=== PATIENT | female | born 1990 ===

== ENCOUNTER 2017-03-30 00:14 | Emergency (ER) | payer SELFPAY ==
[2017-03-30 00:55] VITALS: BMI 27.6
[2017-03-30 00:57] VITALS: BP 106/64; PULSE 83; RESP 16; TEMP 97.9; O2SAT 96
--- NOTE | 2017-03-30 03:10 | ED PDOC ---
HPI: CCC, URI, Sore Throat Time Seen by Provider: 03/30/17 02:16 Chief Complaint (Nursing): Cough, Cold, Congestion Chief Complaint (Provider): cough, congestion History Per: Patient History/Exam Limitations: no limitations Onset/Duration Of Symptoms: Days (4) Current Symptoms Are (Timing): Still Present Associated Symptoms: Cough, Sputum, Nasal Congestion Additional History Per: Patient Additional Complaint(s): 26 y/o female presents with productive cough, congestion x 4 days. Patient notes blood-tingued sputum tonight, which prompted ED visit. Denies fever, headache, dizziness, chest pain, shortness of breath, palpitations, abdominal pain, recent travel, sick contacts. Past Medical History Reviewed: Historical Data, Nursing Documentation, Vital Signs Vital Signs: Last Vital Signs Temp 97.9 F 03/30/17 00:55 Pulse 83 03/30/17 00:55 Resp 16 03/30/17 00:55 BP 106/64 03/30/17 00:55 Pulse Ox 96 03/30/17 03:10 - Medical History PMH: No Chronic Diseases - Surgical History Surgical History: No Surg Hx - Family History Family History: States: No Known Family Hx - Home Medications Home Medications: Ambulatory Orders Medication Instructions Recorded Albuterol HFA [Ventolin HFA 90 1 - 2 puff IH Q4 PRN #1 inh 03/30/17 mcg/actuation (8 g)] Azithromycin [Zithromax] 250 mg PO DAILY #1 packet 03/30/17 Fluticasone Nasal [Flonase] 1 actuation NS BID #1 bottle 03/30/17 Promethazine HCl/Codeine 5 ml PO Q8 PRN #75 ml 03/30/17 [Prometh-Codein 6.25-10 mg/5 ml] - Allergies Allergies/Adverse Reactions: Allergies Allergy/AdvReac Type Severity Reaction Status Date / Time No Known Allergies Allergy Verified 03/30/17 00:55 Review of Systems ROS Statement: Except As Marked, All Systems Reviewed And Found Negative ENT: Positive for: Nose Congestion Respiratory: Positive for: Cough, Sputum Physical Exam - Reviewed Nursing Documentation Reviewed: Yes Vital Signs Reviewed: Yes - Physical Exam Appears: Positive for: Well, Non-toxic, No Acute Distress Head Exam: Positive for: ATRAUMATIC, NORMAL INSPECTION Skin: Positive for: Normal Color Eye Exam: Positive for: Normal appearance ENT: Positive for: Nasal Congestion, Pharyngeal Erythema Cardiovascular/Chest: Positive for: Regular Rate, Rhythm Respiratory: Positive for: Normal Breath Sounds Gastrointestinal/Abdominal: Positive for: Normal Exam Back: Positive for: Normal Inspection Extremity: Positive for: Normal ROM Neurologic/Psych: Positive for: Alert, Oriented - ECG O2 Sat by Pulse Oximetry: 96 Pulse Ox Interpretation: Normal - Radiology X-Ray: Viewed By Ms X-Ray Interpretation: Infiltrates (possible developing RLL infiltrate ) - Progress ED Course And Treament: chest xray, flu, strep, duoneb, ibuprofen Patient educated on findings, discharged with rx Zpak, albuterol HFA, Promethazine with codeine, Flonase Advised follow up PMD 2-3 days. Return precautions given. Disposition - Clinical Impression Clinical Impression: Pneumonia - Patient ED Disposition Is Patient to be Admitted: No Counseled Patient/Family Regarding: Studies Performed, Diagnosis, Need For Followup, Rx Given - Disposition Referrals: [facility] [Outside] Disposition: Routine/Home Disposition Time: 05:01 Condition: IMPROVED Prescriptions: Albuterol HFA [Ventolin HFA 90 mcg/actuation (8 g)] 1 - 2 puff IH Q4 PRN #1 inh PRN Reason: Wheezing Azithromycin [Zithromax] 250 mg PO DAILY #1 packet Fluticasone Nasal [Flonase] 1 actuation NS BID #1 bottle Promethazine HCl/Codeine [Prometh-Codein 6.25-10 mg/5 ml] 5 ml PO Q8 PRN #75 ml PRN Reason: Cough Instructions: Community Acquired Pneumonia (ED) Forms: [employer] (Greenlandic) Print Language: OCCITAN
[2017-03-30] MEDS ORDERED: Albuterol-Ipratrop 3 mg / 0.5 (3 ml) UD ONE (03:28)
[2017-03-30] MEDS: Albuterol-Ipratrop 3 mg / 0.5 (3 ml) UD IH STA (03:45)
--- NOTE | 2017-03-30 11:02 | RAD ---
HISTORY: cough, congestion COMPARISON: No prior. TECHNIQUE: Chest PA and lateral FINDINGS: LUNGS: No active pulmonary disease. PLEURA: No significant pleural effusion identified. No pneumothorax apparent. CARDIOVASCULAR: Normal. OSSEOUS STRUCTURES: No significant abnormalities. VISUALIZED UPPER ABDOMEN: Normal. OTHER FINDINGS: None. IMPRESSION: No active disease.
== END 2017-03-30 05:35 | disposition home or self-care (01) ==
LOC: H.ER 00:14
DX: J18.9 Pneumonia, unspecified organism (principal)

== ENCOUNTER 2017-06-28 19:01 | Emergency (ER) | payer OTHER ==
[2017-06-28 19:01] VITALS: BMI 27.6
[2017-06-28 19:15] VITALS: TEMP 98
[2017-06-28] MEDS: Sodium Chloride 0.9% 1,000 ML IV SCH (19:44)
[2017-06-28 20:20] LABS: ALB/GLOB RATIO 1.4 (1.0-2.1); ALBUMIN 4.2 g/dL (3.5-5.0); ALT/SGPT 39 U/L (9-52); AST/SGOT 24 U/L (14-36); BLOOD UREA NITROGEN 9 mg/dl (7-17); CALCIUM 9.1 mg/dL (8.4-10.2); GFR AFRICAN-AMERICAN > 60; GFR NON-AFRICAN AMERICAN > 60; HDL CHOLESTEROL 38 MG/DL (30-70)
[2017-06-28 20:30] LABS: BASO # 0.1 K/uL (0.0-0.2); BASO % 0.6 % (0.0-2.0); EOS # 0.2 K/uL (0.0-0.7); EOS % 2.9 % (0.0-4.0); HEMOGLOBIN 14.2 g/dL (12.0-16.0); LYMPH # 2.7 K/uL (1.0-4.3); LYMPH % 33.1 % (20.0-40.0); MEAN CELL VOLUME 88.2 fl (81.0-99.0); MEAN CORPUSCULAR HEMOGLOBIN 29.7 pg (27.0-31.0); MEAN CORPUSCULAR HGB CONC 33.7 g/dL (33.0-37.0); MEAN PLATELET VOLUME 9.9 fl (7.2-11.7); MONO # 0.6 K/uL (0.0-0.8); MONO % 7.7 % (0.0-10.0); NEUT # 4.5 K/uL (1.8-7.0); NEUT % 55.7 % (50.0-75.0); NRBC % 0.2 % (0.0-0.0); RBC 4.78 Mil/uL (3.80-5.20); RED CELL DISTRIBUTION WIDTH 13.2 % (11.5-14.5); WHITE BLOOD COUNT 8.1 K/uL (4.8-10.8)
[2017-06-28 20:31] LABS: PARTIAL THROMBOPLASTIN TIME 29.7 Seconds (25.6-37.1); PROTHROMBIN TIME 11.5 Seconds (9.8-13.1)
[2017-06-28 20:32] LABS: LDL CHOLESTEROL 96 mg/dL (0-129)
--- NOTE | 2017-06-28 20:38 | ED PDOC ---
HPI:STROKE - Time Time: 19:10 - Historian Historian: Patient - Chief Complaint Chief Complaint: other (headache bilateral weakness) - Onset Date: 06/28/17 Time: 18:00 - Location Location: Difficult to localize Locate right:: Upper extremity, Lower extremity Locate left: Lower extremity - Severity of pain Maximum severity:: Severe Severity Current: Severe - Quality of Pain Quality of Pain:: Pressure - Exacerbated by Exacerbated by:: Other (bright lights) - Relieved by Relieved by:: Nothing - TPA Positive for Contraindication: Yes Reason tPA is not being Administered: NIHSS <4 - Notes: Notes:: 26yo female hx prior headaches last about one year ago presents c/o severe headache associated with light sensitivity and bilateral tingling to hands and legs. Denies weakness, fever, neck pain, change in speech, seizure activity or trauma. NIHSS Stroke Scale - Date/Time Evaluation Performed Date Performed: 06/28/17 Time Performed: 18:30 When Was NIHSS Performed: Baseline - How Severe is the Stroke Level of Consciousness: 0=Alert LOC to Questions: 0=Both comments correct LOC to commands: 0=Obeys both correctly Best Gaze: 0=Normal Visual: 0=No visual loss Facial: 0=Normal Motor Arm - Left: 0=No drift Motor Arm - Right: 0=No drift Motor Leg - Left: 0=No drift Motor Leg - Right: 0=No drift Limb Ataxia: 0=Absent Sensory: 0=Normal Best Language: 0=No aphasia Dysarthia: 0=Normal articulation Extinction & Inattention (Neglect): 0=Normal, no object Score: 0 rTPA Inclusion/Exclusion - Refusal of Treatment Patient Refused Treatment: No - Inclusion Criteria for Altepase Patient is 18 years or Older: Yes The Clinical Diagnosis of Ischemic Stroke That is Causing a Potentially Disabling Neurological Deficit: No Time of Onset is Well Established to be Less Than 270 Minute Before Treatment Would Begin: No Risk/Benefit Discussed With Patient/Family Member Present: No - Exclusion Criteria for Altepase Uncontrolled Hypertension at Time of Treatment (Systolic BP above 185 or Diastolic BP above 110 mmHg): No - Warning to TPA With Conditions Condition: Stroke Serevity Too Mild Past Medical History Reviewed: Historical Data, Nursing Documentation, Vital Signs Vital Signs: Last Vital Signs Temp 98.0 F 06/28/17 19:08 Pulse 79 06/28/17 19:08 Resp 16 06/28/17 19:08 BP 129/69 06/28/17 19:08 Pulse Ox 100 06/28/17 19:08 - Medical History PMH: Migraine - Surgical History Surgical History: No Surg Hx - Family History Family History: States: Unknown Family Hx - Living Arrangements Living Arrangements: With Family - Social History Current smoker - smoking cessation education provided: No - Home Medications Home Medications: Ambulatory Orders Medication Instructions Recorded Albuterol HFA [Ventolin HFA 90 1 - 2 puff IH Q4 PRN #1 inh 03/30/17 mcg/actuation (8 g)] Azithromycin [Zithromax] 250 mg PO DAILY #1 packet 03/30/17 Fluticasone Nasal [Flonase] 1 actuation NS BID #1 bottle 03/30/17 Promethazine HCl/Codeine 5 ml PO Q8 PRN #75 ml 03/30/17 [Prometh-Codein 6.25-10 mg/5 ml] Naproxen [Naprosyn] 500 mg PO BID PRN #14 tablet 06/28/17 - Allergies Allergies/Adverse Reactions: Allergies Allergy/AdvReac Type Severity Reaction Status Date / Time No Known Allergies Allergy Verified 03/30/17 00:55 Review of Systems Constitutional: Negative for: Fever, Chills Cardiovascular: Negative for: Chest Pain, Palpitations Respiratory: Negative for: Cough, Hemoptysis Gastrointestinal: Positive for: Nausea. Negative for: Vomiting, Abdominal Pain Genitourinary Female: Negative for: Dysuria Musculoskeletal: Negative for: Neck Pain, Back Pain Skin: Negative for: Rash, Lesions Neurological: Positive for: Weakness (bilateral), Numbness (bilateral hands), Headache. Negative for: Incoordination, Change in Speech, Confusion, Seizures, Altered Mental Status Psych: Positive for: Anxiety. Negative for: Depression Physical Exam - Reviewed Nursing Documentation Reviewed: Yes Vital Signs Reviewed: Yes - Physical Exam Appears: Positive for: Non-toxic (uncomfortable w clear speech in [place] no dysarthria) Head Exam: Positive for: ATRAUMATIC, NORMAL INSPECTION, NORMOCEPHALIC Skin: Positive for: Normal Color, Warm, DRY Eye Exam: Positive for: EOMI, PERRL, Other (photophobic) ENT: Positive for: Normal ENT Inspection Neck: Positive for: Normal, Painless ROM. Negative for: Pain On Movement Of Neck Cardiovascular/Chest: Positive for: Regular Rate, Rhythm Respiratory: Positive for: CNT, Normal Breath Sounds Pulses-Radial (L): 2+ Pulses-Radial (R): 2+ Gastrointestinal/Abdominal: Positive for: Bowel Sounds, Soft. Negative for: Tenderness, Guarding Back: Positive for: Normal Inspection Extremity: Positive for: Normal ROM Neurologic/Psych: Positive for: Alert, traffic administrator II-XII, Oriented. Negative for: Motor/Sensory Deficits - Laboratory Results Result Diagrams: 06/28/17 20:06 06/28/17 20:06 - ECG O2 Sat by Pulse Oximetry: 100 Pulse Ox Interpretation: Normal Medical Decision Making Medical Decision Mak[place] female w likely complex migraine D/w Dr Alvares neurology recommends trial imitrex and IV cocktail for headache labs and ct imaging report reviewed- no concerning abnormalities patient was re-evaluated frequently and showed gradual improvement in headache. remained without acute objective neurologic symptoms On final re-evaluation she stated headache was resolved. Some mild light sensitivity remained but denied neck pain, nausea, chills or weakness/numbness. 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 Questions answered and indications for return discussed. Rx naprosyn, referral to clinic/ neurology made given recurrent migranes. Disposition - Clinical Impression Clinical Impression: Acute headache - Patient ED Disposition Is Patient to be Admitted: No - Disposition Referrals: [facility] [Outside] Disposition Time: 23:45 Condition: STABLE Additional Instructions: See neurologist for further testing. Take medications as directed. Return to ER for any new or worsening symptoms. Prescriptions: Naproxen [Naprosyn] 500 mg PO BID PRN #14 tablet PRN Reason: Pain, Moderate (4-7) Instructions: Acute Headache (ED) Forms: [employer] (Persian), [facility] ED School/Work Excuse Print Language: FRISIAN
[2017-06-28] MEDS ORDERED: Potassium Chloride 20 mEq ER Tab PO ONE (20:57)
[2017-06-28] MEDS: Potassium Chloride 20 mEq ER Tab PO ONE (20:59)
[2017-06-28 21:02] VITALS: RESP 20
[2017-06-28 22:40] VITALS: BP 102/62; PULSE 58
--- NOTE | 2017-06-29 11:00 | CARD ---
APPROVED REPORT EKG Measurement Heart [id number] <Conclusion> Sinus bradycardia with sinus arrhythmia Low voltage QRS Borderline ECG
--- NOTE | 2017-06-29 11:12 | RAD ---
HISTORY: Code Stroke COMPARISON: Chest radiographs 03/30/2017 FINDINGS: LUNGS: Diminished history volume. No definite acute infiltrate identified bilaterally. PLEURA: No significant pleural effusion identified, no pneumothorax apparent. CARDIOVASCULAR: Normal. OSSEOUS STRUCTURES: No significant abnormalities. VISUALIZED UPPER ABDOMEN: Surgical clips again noted right upper quadrant abdomen. OTHER FINDINGS: None. IMPRESSION: Diminished inspiratory volume. No acute infiltrate or pleural effusion bilaterally.
[2017-06-29 14:48] VITALS: O2SAT 100
--- NOTE | 2017-06-30 14:34 | CT ---
PROCEDURE: CT HEAD WITHOUT CONTRAST. HISTORY: code stroke COMPARISON: None available. TECHNIQUE: Axial computed tomography images were obtained through the head/brain without intravenous contrast. Radiation dose: Total exam DLP = 921.36 mGy-cm. This CT exam was performed using one or more of the following dose reduction techniques: Automated exposure control, adjustment of the mA and/or kV according to patient size, and/or use of iterative reconstruction technique. FINDINGS: HEMORRHAGE: No intracranial hemorrhage. BRAIN: Normal morillo-white matter differentiation and density are appreciated throughout the cerebrum and cerebellum with the brainstem appearing unremarkable as well. There is no mass effect. There is no suspicious extra-axial fluid collection and the midline brain anatomy appears diffusely unremarkable. VENTRICLES: Unremarkable. No hydrocephalus. CALVARIUM: Unremarkable. PARANASAL SINUSES: Unremarkable as visualized. No significant inflammatory changes. MASTOID AIR CELLS: Unremarkable as visualized. No inflammatory changes. OTHER FINDINGS: None. IMPRESSION: Unremarkable unenhanced CT of the Head. Findings reported to Emergency Room by Dillon salinas radiologist 06/28/2017 7:33 p.m..
== END 2017-06-29 00:36 | disposition home or self-care (01) ==
LOC: H.ER 19:01
DX: R51 Headache (principal); R11.0 Nausea; M62.81 Muscle weakness (generalized)
CPT/HCPCS: 70450; 71045; 80053; 80061; 81025; 82948; 83036; 84484; 85025; 85610; 85730; 86850; 86900; 93005; 96372; 96374; 96375; 99285; J1100; J1885; J2765; J3030; J7040